=== PATIENT | female | born 1980 | race Caucasian/White ===

== ENCOUNTER 2020-07-20 12:16 | Outpatient (REF) | payer OTHER, SELFPAY ==
[2020-07-20 12:43] LABS: COVID-19 Test Negative (Negative); IDNOW Serial# 9DD0AD1C
== END 2020-07-20 12:17 | disposition home or self-care (01) ==
LOC: HO.LAB 12:16
PROVIDERS: Visit Provider Internal Medicine
DX: Z20.822 Contact with and (suspected) exposure to COVID-19 (principal)
CPT/HCPCS: 36415; 87635; C9803

== ENCOUNTER 2021-08-29 18:26 | Emergency (ER) | payer OTHER, SELFPAY ==
--- NOTE | ~2021-08-29 | CT_ITS ---
EXAMINATION: CT HEAD WITHOUT CONTRAST CLINICAL INFORMATION: Persistent left frontal headache with hypertension COMPARISON: None TECHNIQUE: Contiguous axial imaging was performed from the skull base to vertex without intravenous administration of contrast. This CT examination was performed using dose optimization techniques as appropriate, variously including the following: *Automated exposure control *Adjustment of mA and/or kV according to patient size (this includes techniques or standardized protocols for targeted exams where dose is matched to indication/reason for exam; i.e. extremities or head) *Use of iterative reconstruction technique DLP: 656 mGy-cm FINDINGS: There is no evidence of acute intracranial hemorrhage or territorial infarction. No abnormal mass effect or midline shift is seen. Horvath to white matter differentiation is well preserved. No extra-axial fluid collections are identified. The ventricles are normal in size. There is no abnormal attenuation within the brain parenchyma. The osseous structures and soft tissues are normal. There is partial opacification of the sphenoid sinuses. The mastoid air cells are well-aerated. CT/CT head/brain wo con IMPRESSION: No acute intracranial pathology.
[2021-08-29 19:45] VITALS: BP 161/95; PULSE 69; RESP 16; TEMP 36.3; O2SAT 100; BMI 25.7
[2021-08-29 20:01] LABS: MANUAL DIFF FLAG NO
[2021-08-29 20:02] LABS: Basophils Percent Auto 0.6 % (0-2); Eosinophils Absolute Auto 0.1 X10*3/uL (0.0-0.4); Eosinophils Percent Auto 1.3 % (0-4); Hematocrit 37.3 % (37.0-47.0); Hemoglobin 12.3 g/dl (12.0-16.0); Imm Gran Abs Auto 0.01 X10*3/uL (0.00-0.03); Imm Gran Pct Auto 0.1 % (0.0-0.4); Lymphocytes Absolute Auto 2.4 X10*3/uL (1.2-4.9); Lymphocytes Percent Auto 34.5 % (20-40); Mean Corpuscular Hemoglobin 28.7 pg (27.0-33.0); Mean Corpuscular Volume 86.9 fL (80.0-98.0); Monocytes Absolute Auto 0.5 X10*3/uL (0.1-1.2); Monocytes Percent Auto 6.6 % (2-11); Neutrophils Absolute Auto 3.9 x10*3/uL (2.0-8.3); Neutrophils Percent Auto 56.9 % (45-73); Platelet Count 234 X10*3/uL (160-400); Red Blood Count 4.29 X10*6/uL (4.20-5.50); Red Cell Distribution Width 13.7 % (11.0-16.0); White Blood Count 6.9 X10*3/uL (4.8-10.8)
[2021-08-29 20:17] LABS: Alanine Aminotransferase 12 U/L (0-31); Albumin Level 4.1 g/dL (3.5-5.0); Alkaline Phosphatase 77 U/L (39-117); Anion Gap 12 (12-20); Aspartate Amino Transferase 16 U/L (5-31); Bilirubin Total 0.3 mg/dL (0.0-1.0); Blood Urea Nitrogen 11 mg/dL (9-16); Calcium 9.1 mg/dL (8.4-10.2); Carbon Dioxide 23 mmol/L (22-29); Chloride 105 mmol/L (96-108); Creatinine Clr Calc Pharmacy 85.5; Estimated Glomerular Filt Rate > 60; Glucose Random 125 mg/dL (60-115); Potassium 4.2 mmol/L (3.3-5.1); Sodium 136 mmol/L (135-145); Total Protein 7.1 g/dL (6.5-8.0)
[2021-08-29 20:22] LABS: HCG Quantitative < 2 mIU/mL
[2021-08-29 23:44] VITALS: BP 146/93; PULSE 78; RESP 16; O2SAT 97
--- NOTE | 2021-08-29 23:48 | ED.HA ---
HPI - Headache General Chief Complaint: Headache Stated Complaint: high blood pressure and headache Time Seen by Provider: 08/29/21 23:48 Source: patient Mode of arrival: ambulatory Limitations: no limitations History of Present Illness HPI Narrative: Patient knows history of headaches in the past noticed left frontal headache for last 1 week tried Tylenol/Motrin for pain but for last 3 days pain is persistent also patient noticed that her blood pressure is elevated was 1631/95 the triage no nausea no vomiting no light sensitivity no neck pain no fever or chills no vision problem Related Data Previous Rx's Medication Instructions Recorded losartan 50 mg-hydrochlorothiazide 1 tab PO DAILY #90 tabs 08/30/21 12.5 mg tablet Allergies Allergy/AdvReac Type Severity Reaction Status Date / Time No Known Allergies Allergy Verified 08/29/21 19:44 Review of Systems Review of Systems: Yes all other systems are reviewed and are negative [facility] Social History Social History Advance Directives: No Physical Exam Vital Signs: Vital Signs: Last Vital Signs Temp 97.4 F 08/29/21 19:45 Pulse 78 08/29/21 23:44 Resp 16 08/29/21 23:44 BP 146/93 H 08/29/21 23:44 Pulse Ox 97 08/29/21 23:44 O2 Del Method 08/29/21 19:45 BMI result Body Mass Index 25.7 Appearance: Alert. Oriented X3. No acute distress. Eyes: PERRLA, No Nystagmus fundus benign no papilledema ENT: Pharynx normal. Oral Mucosa moist no temporal artery tenderness Neck: Normal inspection. Neck supple. CVS: Normal heart rate and rhythm. Pulses normal. Respiratory: No respiratory distress. Equal air entry bilateral, no wheezing/rales/rhonchi Abdomen: Soft and nontender. Bowel sounds are present, no mass palpable, no CVA tenderness Skin: Skin warm and dry. Normal skin color. Normal skin turgor. Extremities: No lower extremity edema. No calf tenderness Neuro: Oriented X 3. No motor deficit. No sensory deficit.No cerebellar signs , cranial nerves II-XII intact MDM - Headache MDM Narrative Medical decision making narrative: CT scan had negative for any acute patient does have elevated blood pressure recheck blood pressure was 163/106 patient does have a strong family history of hypertension but patient never been diagnosed with hypertension patient cannot see her PCP till January hence will start the patient on lisinopril and advised to follow-up with PCP sooner Lab Data Attestation: I reviewed the patient's lab results. Result diagrams: 08/29/21 19:52 08/29/21 19:52 Labs: Lab Results 08/29/21 08/29/21 Range/Units 19:52 19:52 WBC 6.9 (4.8-10.8) X10*3/uL RBC 4.29 (4.20-5.50) X10*6/uL Hgb 12.3 (12.0-16.0) g/dl Hct 37.3 (37.0-47.0) % MCV 86.9 (80.0-98.0) fL MCH 28.7 (27.0-33.0) pg MCHC 33.0 (31.0-35.0) g/dl RDW 13.7 (11.0-16.0) % Plt Count 234 (160-400) X10*3/uL MPV 11.0 (9.4-12.3) fL Immature Gran % (Auto) 0.1 (0.0-0.4) % Neut % (Auto) 56.9 (45-73) % Lymph % (Auto) 34.5 (20-40) % Calhoun % (Auto) 6.6 (2-11) % Eos % (Auto) 1.3 (0-4) % Baso % (Auto) 0.6 (0-2) % Lymph # (Auto) 2.4 (1.2-4.9) X10*3/uL Calhoun # (Auto) 0.5 (0.1-1.2) X10*3/uL Eos # (Auto) 0.1 (0.0-0.4) X10*3/uL Baso # (Auto) 0.0 (0.0-0.2) X10*3/uL Abs Immat Gran (auto) 0.01 (0.00-0.03) X10*3/uL Absolute Neuts (auto) 3.9 (2.0-8.3) x10*3/uL Absolute Nucleated RBC 0.000 (0.0-0.012) X10*3/uL Nucleated RBC % (auto) 0.0 (0.0-0.2) /100WBC Sodium 136 (135-145) mmol/L Potassium 4.2 (3.3-5.1) mmol/L Chloride 105 (96-108) mmol/L Carbon Dioxide 23 (22-29) mmol/L Anion Gap 12 (12-20) BUN 11 (9-16) mg/dL Creatinine 0.82 (0.5-1.4) mg/dL Estim Creat Clear Calc 85.5 Estimated GFR > 60 Random Glucose 125 H (60-115) mg/dL Calcium 9.1 (8.4-10.2) mg/dL Total Bilirubin 0.3 (0.0-1.0) mg/dL AST 16 (5-31) U/L ALT 12 (0-31) U/L Alkaline Phosphatase 77 (39-117) U/L Total Protein 7.1 (6.5-8.0) g/dL Albumin 4.1 (3.5-5.0) g/dL Beta HCG, Quant < 2 mIU/mL Discharge Plan Discharge Clinical Impression: Headache, Hypertension Patient Disposition: Home, Self-Care Instructions: Acute Headache (ED), Hypertension (ED) Additional Instructions: You have high blood pressure likely the cause of pulsating headache Start taking blood pressure medication and check your blood pressure before taking the medicine and in the evening it should be less than 135/85 Decrease salt intake Follow-up with your PCP for further management Prescriptions: New losartan-hydrochlorothiazide 50-12.5 mg tablet 1 tab PO DAILY Qty: 90 0RF
[2021-08-30] MEDS: Ibuprofen 400 MG TABLET PO (00:53)
[2021-08-30] MEDS: Acetaminophen 325 MG TABLET 975 MG PO (00:53)
[2021-08-30 02:08] VITALS: BP 163/106; PULSE 68
[2021-08-30] MEDS: Losartan Potassium 50 MG TABLET PO (02:08)
== END 2021-08-30 02:14 | disposition home or self-care (01) ==
PROVIDERS: Student in an Organized Health Care Education/Training Program; Emergency Provider Internal Medicine
DX: R51.9 Headache, unspecified (principal); I10 Essential (primary) hypertension; Z79.899 Other long term (current) drug therapy
CPT/HCPCS: 36415; 70450; 80053; 84702; 85025; 99284